=== PATIENT | female | born 1965 | race Caucasian/White ===

== ENCOUNTER 2017-04-18 19:49 | Emergency (ER) | payer BC ==
--- NOTE | 2017-04-18 19:55 | PDOC ---
History of Present Illness - General History Source: Patient Exam Limitations: No Limitations - History of Present Illness Initial Comments: 04/18/17 20:47 The patient is a 52 year old female, with a significant past medical history of anxiety, who presents to the emergency department with, lower left sided back pain s/p fall down 10 steps at home approx. 20 minutes ago. The patient reports she was rushing to get ready to leave the house to go to caodaism class when she misstepped and fell backwards sliding down the stairs on her back. She denies hitting her head or loss of consciousness during the initial fall. However, she reports standing up after the fall and states the lower left sided back pain was so intense that she then sat back down and lost consciousness secondary to the pain. As per patients daughter, she states she found the patient lying prone on the floor and reports the patient appeared to be confused for 10-15 seconds before returning to baseline. The patient states the left sided back pain is made worse while walking and reports a shooting pain down the left leg. She denies any numbness, weakness, or tingling. She denies any neck pain. She denies any bowel or bladder incontinence. She denies recent fevers, chills, headache or dizziness. She denies recent nausea, vomit, diarrhea or constipation. She denies recent chest pain or shortness of breath. Allergies: NKA <Efra Bradley - Last Filed: 04/18/17 20:47> <Sofia Elizondo - Last Filed: 04/19/17 00:44> - General Chief Complaint: Injury Stated Complaint: FELL DOWN STAIRS,PAIN TOLEFT SIDE OF BACK Time Seen by Provider: 04/18/17 19:55 Past History <Efra Bradley - Last Filed: 04/18/17 20:47> <Sofia Elizondo - Last Filed: 04/19/17 00:44> - Past Medical History Allergies/Adverse Reactions: Allergies Allergy/AdvReac Type Severity Reaction Status Date / Time No Known Allergies Allergy Verified 04/18/17 19:51 Home Medications: Ambulatory Orders Escitalopram Oxalate [Lexapro -] 5 mg PO DAILY 04/18/17 Levothyroxine Sodium [Synthroid] 75 mcg PO DAILY 04/18/17 Review of Systems - Review of Systems Comments:: 04/18/17 20:47 GENERAL/CONSTITUTIONAL: No fever or chills. No weakness. HEAD, EYES, EARS, NOSE AND THROAT: No change in vision. No ear pain or discharge. No sore throat. CARDIOVASCULAR: No chest pain or shortness of breath. RESPIRATORY: No cough, wheezing, or hemoptysis. GASTROINTESTINAL: No nausea, vomiting, diarrhea or constipation. GENITOURINARY: No dysuria, frequency, or change in urination. MUSCULOSKELETAL: (+) Lower left sided back pain. SKIN: No rash NEUROLOGIC: (+) Loss of consciousness. No headache, vertigo, or change in strength/sensation. ENDOCRINE: No increased thirst. No abnormal weight change. HEMATOLOGIC/LYMPHATIC: No anemia, easy bleeding, or history of blood clots. ALLERGIC/IMMUNOLOGIC: No hives or skin allergy. <Efra Bradley - Last Filed: 04/18/17 20:47> *Physical Exam - Vital Signs Last Vital Signs Temp Pulse Resp BP Pulse Ox 98.4 F 59 L 16 129/70 100 04/18/17 19:55 04/18/17 19:55 04/18/17 19:55 04/18/17 19:55 04/18/17 19:55 <Efra Bradley - Last Filed: 04/18/17 20:47> - Physical Exam General Appearance: Yes: Nourished, Appropriately Dressed. No: Apparent Distress HEENT: positive: EOMI, Normal ENT Inspection, Normal Voice, Pharynx Normal Neck: negative: Rigidity, Tender lateral Respiratory/Chest: positive: Lungs Clear, Normal Breath Sounds. negative: Chest Tender Cardiovascular: positive: Regular Rhythm, Regular Rate Gastrointestinal/Abdominal: positive: Other (+ left flank ttp, no guarding/ rebound) Musculoskeletal: positive: Other (+ lower thoracic/upper lumbar midline ttp with no bony stepoffs noted, +ttp lumbar paraspinal musculature (L>R)) Extremity: positive: Other (+healing brown/green ecchymosis to R anterior thigh (reports bumping leg on furniture at work days ago)). negative: Swelling, Calf Tenderness Integumentary: positive: Normal Color Neurologic: positive: produce buyer II-XII NML intact, Fully Oriented, Alert, Normal Mood/ Affect, Normal Response, Motor Strength 5/5 <Sofia Elizondo - Last Filed: 04/19/17 00:44> ED Treatment Course - LABORATORY CBC & Chemistry Diagram: 04/18/17 21:15 04/18/17 21:15 <Sofia Elizondo - Last Filed: 04/19/17 00:44> Medical Decision Making - Medical Decision Making 04/18/17 21:22 Pt seen/examined on arrival. s/p mechanical fall down 10 stairs prior to arrival. Has hx of von willebrand disease which increases her chances of prolonged bleeding/clotting dysfunction. Quite tender to L flank/L lower ribs and midline lumbar spine. FAST exam neg for FF in RUQ/LUQ/bladder/cardiac views. Clear equal lung sounds bilaterally. Due to the mechanism, will proceed to CT head, c spine, C/A/P with recons of T/L spine to rule out traumatic injury. It's unclear whether she actually lost consciousness, denies true head trauma and no s/o head trauma on exam but based on her hx and mechanism, will observe her in ED. 04/19/17 00:38 Results reviewed, no traumatic injuries. Does have few RBCs, 1+blood in urine which I discussed with patient - she has had hematuria for years and has had extensive workup for it, she has not had a "clean" urine for as long as she can remember. Her pain has improved and she is ambulating in the ER with slightly antalgic gait but is steady on her feet. AOx3, GCS 15, speaking clearly, full recollection of incident. Pt reports that she has not had difficulty with bleeding as a result of her VWD in >20 yrs and opts out of prophylactic DDAVP. Will dc home with copies of her imaging to f/u with her PMD. Advised strongly to return to ER if worsening pain, vomiting, confusion. <Sofia Elizondo - Last Filed: 04/19/17 00:44> *DC/Admit/Observation/Transfer - Attestations Scribe Attestion: 04/18/17 20:48 Documentation prepared by Efra Bradley, acting as medical staff manager for Sofia Elizondo DO. <Efra Bradley - Last Filed: 04/18/17 20:47> <Sofia Elizondo - Last Filed: 04/19/17 00:44> Diagnosis at time of Disposition: Fall (on) (from) other stairs and steps, initial encounter - Discharge Dispostion Disposition: HOME Condition at time of disposition: Improved - Patient Instructions Printed Discharge Instructions: DI for Low Back Pain, DI for Trauma Additional Instructions: You were seen in the ER after taking a fall down stairs at home. You had cat scans of your head, spine, chest and abdomen to check for injuries - these studies were negative for acute injuries. The non-trauma related findings were explained to you and you were given copies of your results to take to your primary care doctor. You did have a tiny amount of blood in your urine which we discussed and is not new for you. If you have ANY worsening pain, vomiting, confusion, please return to this ER or a trauma center. Take tylenol for pain and apply ice to the places that hurt. Please call your doctor tomorrow for a follow up appointment within the next 2-3 days. - Post Discharge Activity Forms/Work/School Notes: Back to Work
[2017-04-18 20:30] VITALS: TEMP 98.4; BMI 27.8
[2017-04-18] MEDS ORDERED: morphine SULFATE 4 MG/ML VIAL IVPUSH ONE (20:49)
[2017-04-18] MEDS ORDERED: ACETAMINOPHEN 500 MG TABLET (FP) PO ONE (20:49)
[2017-04-18] MEDS ORDERED: ACETAMINOPHEN 1000 MG/100 ML VIAL (NON FORMULARY) IVPB ONE (20:53)
[2017-04-18] MEDS ORDERED: ACETAMINOPHEN INJECTION 100 ML IVPB ONE (21:00)
[2017-04-18] MEDS ORDERED: morphine CARPU-JECT 2 MG/1 ML DISP.SYRIN ONE (21:00)
[2017-04-18] MEDS ORDERED: ONDANSETRON 4 MG/2 ML VIAL IVPUSH ONE (21:01)
[2017-04-18] MEDS ORDERED: ONDANSETRON 4 MG/2 ML VIAL ONE (21:03)
[2017-04-18 21:34] LABS: HEMOGLOBIN 12.9 GM/dl (10.7-15.3)
[2017-04-18 21:35] LABS: ACTIVATED PTT 28.5 SECONDS (24.0-38.9)
[2017-04-18 21:37] LABS: BASO % 0.4 % (0-2.0); HEMATOCRIT 37.2 % (32.4-45.2); MCH 31.1 pg (25.7-33.7); MCHC 34.6 g/dl (32.0-36.0); MEAN CELL VOLUME 89.9 fl (80-96); MEAN PLT VOLUME 8.6 fl (7.5-11.1); MONO % 6.3 % (3.8-10.2); NEUT % 77.3 % (42.8-82.8); PLATELET COUNT 224 K/MM3 (134-434); RBC 4.13 M/mm3 (3.60-5.2); RDW 12.3 % (11.6-15.6); WHITE BLOOD COUNT 9.9 K/mm3 (4.0-10.8)
[2017-04-18 21:39] LABS: INR 1.06 (0.82-1.09); PROTHROMBIN TIME (PATIENT) 11.9 SEC (10.2-13.0)
[2017-04-18 21:43] LABS: ALBUMIN 4.1 g/dl (3.5-5.0); ALK PHOS 79 U/L (32-92); ANION GAP 5 (8-16); BILIRUBIN,TOTAL 0.6 mg/dl (0.2-1.0); BLOOD UREA NITROGEN 10 mg/dl (7-18); CALCIUM 9.1 mg/dl (8.4-10.2); CHLORIDE 102 mmol/L (98-107); CO2 29 mmol/L (22-28); CREATININE < 0.8 mg/dl (0.6-1.3); GLUCOSE,RANDOM 99 mg/dl (74-106); POTASSIUM 3.8 mmol/L (3.5-5.1); SGOT/AST 27 U/L (10-42); SGPT/ALT 16 U/L (10-40); SODIUM 136 mmol/L (136-145); TOT PROT 6.9 g/dl (6.4-8.3)
[2017-04-18 22:55] LABS: PH,URINE 7.5 (4.5-8); URINE APPEARANCE Clear; URINE BILIRUBIN Negative (NEGATIVE); URINE GLUCOSE (UA) Negative (NEGATIVE); URINE KETONE Negative (NEGATIVE); URINE LEUK ESTERASE Negative (NEGATIVE); URINE NITRITE Negative (NEGATIVE); URINE PROTEIN Negative (NEGATIVE); URINE UROBILINOGEN 0.2 (0.2-1.0)
[2017-04-18 22:56] LABS: URINE BLOOD 1+ (NEGATIVE); URINE COLOR YELLOW
[2017-04-18 23:02] VITALS: BP 152/89; PULSE 76
[2017-04-18 23:07] LABS: EPI CELLS FEW /HPF; URINE BACTERIA FEW /hpf (NEGATIVE); URINE WBC 0-2 (0-5)
== END 2017-04-19 00:55 | disposition home or self-care (01) ==
LOC: FER 19:49
PROC: 3E033NZ Introduction of Analgesics, Hypnotics, Sedatives into Peripheral Vein, Percutaneous Approach (ICD-10-PCS; principal; 2017-04-18)
PROC: 3E033GC Introduction of Other Therapeutic Substance into Peripheral Vein, Percutaneous Approach (ICD-10-PCS; 2017-04-18)
DX: M54.5 Low back pain (principal); W10.9XXA Fall (on) (from) unspecified stairs and steps, initial encounter; Y93.89 Activity, other specified; Y92.9 Unspecified place or not applicable
CPT/HCPCS: 36415; 70450-TC; 71270-TC; 72125-TC; 72128-TC; 72131-TC; 74178-TC; 80053; 81003; 81015; 85025; 85610; 85730; 86850; 86900; 86901; 99282-25; J0131